=== PATIENT | female | born 1975 | race Asian ===

== ENCOUNTER 2019-01-21 12:30 | Outpatient (RCR) | payer OTHER, SELFPAY ==
--- NOTE | 2019-01-11 14:17 | OT.OP.EVAL ---
Visit Care Team Role Provider Type Celsa Ward MD Primary Care Provider Physician Specialty: Family Practice Address: [address] [place] [address], [address] Email: [email or web address] Asher Tirado MD Attending Provider Non-Staff Specialty: Family Practice Address: [address] [place] [address], [id number] Email: Occupational Therapy Initial Evaluation OT Outpatient Adult Evaluation Start: 01/11/19 13:46 Freq: Status: Active Protocol: Document 01/10/19 15:30 AMS (Rec: 01/11/19 14:17 AMS [email or web address]) General Information Visit Start Time 14:30 Visit Stop Time 15:18 Total Visit Minutes 48 Plan of Care Dates 01/10/19-02/21/19 Insurance Information - Pre-auth Required Treatment Setting Outpatient Care Note Type Initial Evaluation Referring Physician Asher Tirado MD Reason for Referral Pain in left hand Precautions None listed Identification Confirmed Yes Identification Confirmed By Self Patient Concerns Pain Medical History Giulia reported that x-ray and CT scan were negative. Previous Therapy/Therapies No: Denied Therapy Pain Assessment When Pain Assessed pre-tx Pain Present Pain Reported Left Hand Intensity 6 Scale Used Numeric (1 - 10) Pain Behaviors Guarding Wincing Pain Management Techniques Apply Cold Distraction IADLs Comments Impaired Sleep Description Verbally reported difficulties sleeping. 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 Goals Treatment Ultrasound. 20% duty cycle; pulsed setting. 1.8 w/cm2 to palmar surface to address swelling. Skin intact pre- and post-treatment. 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 Giulia will be modified independent with execution of home exercise program utilizing provided written and visual instructions. 2. Giulia will present with increased ability to complete every day tasks due to reduction in pain/discomfort of the left hand; this will be evidenced by Giulia's indication of 2 or less on the Pain Assessment Grid relative to the left hand. 3. Giulia will be able to complete vocational tasks with minor complaints of pain/ discomfort. Assessment/Plan Patient Response Fair Rehabilitation Potential Fair Impairments Identified ADLs Coordination/Dexterity Flexibility Functional Activities Motor Function Pain Weakness Range of Motion Recreational Activities Meaningful Activities Stiffness Swelling Soft Tissue Mobility Motor Planning Treatment Assessment Giulia is a right hand dominant 43 year-old female referred to outpatient OT by attending physician d/t left hand pain. Giulia reported that the pain in her left hand presented after her return from a 10-day vacation in [place]; Giulia was unable to identify event/ incident that occurred prior to the presentation of her symptoms. Giulia reports icing hand consistently; she also reports attempting to use ruth ann bandage to manage pain symptoms. PMH: Outpatient Health History Form completed by patient and placed in paper chart. Significant for bruising easily; jaw pain; headaches; shortness of breath ; difficulties sleeping; and surgery for removal of cysts in breast. Patient Goals: Minimize pain; be able to complete daily tasks, including vocational tasks without pain; increase strength of hand. Evaluation findings: Right hand dominant female; mild edema - dorsum of left hand and volar surface of left hand /palmar area; pain/discomfort of the left hand; decreased ability to execute daily and vocational tasks w/ active incorporation of the non- dominant hand; decreased strength of the left hand; discomfort w/ formation of tight fist w/ left hand; discomfort w/ active ext of MCP and IP joints of 3rd digit and w/ slightly resisted abd. Outpatient OT is recommended to address these areas in order to maximize Giulia's success in day-to-day life with active participation in meaningful activities in a variety of environments (e.g., work). Home Exercise Program Instructed in manual massage; education completed re: available gloves to assist w/ edema management of the hand ( isotoner glove or edema glove) . Comment 6 weeks Comment 1-2 x per week Therapeutic Contents Active Range of Motion Client Education Functional Activities Home Exercise Program Joint Protection Manual Therapy Education Neurodevelopment Treatment Neuromuscular Re-Education Stretching/Flexibility Activities Therapeutic Activities Therapeutic Exercises Modalities Sensory Re-education Modalities As Needed As Prescribed Types of Modalities Contrast Bath E-Stim Functional Stimulation (FES) Graded Compression Ice Massage T.E.N. Stimulation TENS Placement/Application Ultrasound Other Patient Instruction Plan of Care Questions/Concerns
--- NOTE | 2019-01-14 17:32 | OT.OP.TRT ---
Visit Care Team Role Provider Type Celsa Ward MD Primary Care Provider Physician Specialty: Family Practice Address: [address] [place] [address], [address] Email: [email or web address] Asher Tirado MD Attending Provider Non-Staff Specialty: Family Practice Address: [address] [place] [address], [address] Email: Occupational Therapy Treatment Note OT Outpatient Treatment Note - Adult Start: 01/11/19 13:46 Freq: Status: Active Protocol: Document 01/14/19 17:10 AMS (Rec: 01/14/19 17:32 AMS [email or web address]) OT Outpatient Adult Treatment Note Session Time Visit Start Time 13:30 Visit Stop Time 14:10 Total Visit Minutes 40 Visit Information Plan of Care Dates 01/10/19-02/21/19 Insurance Information - Pre-auth Required Setting Treatment Setting Outpatient Care Visit Type Note Type Treatment Note General Information General Information Giulia is a right hand dominant 43 year-old female referred to outpatient OT by attending physician d/t left hand pain. Giulia reported that the pain in her left hand presented after her return from a 10-day vacation in [place]; Giulia was unable to identify event/ incident that occurred prior to the presentation of her symptoms. Giulia reports icing hand consistently; she also reports attempting to use ruth ann bandage to manage pain symptoms. PMH: Outpatient Health History Form completed by patient and placed in paper chart. Significant for bruising easily; jaw pain; headaches; shortness of breath ; difficulties sleeping; and surgery for removal of cysts in breast. - Subjective Identification Type Name Identification Reconciled With Medical Record Observations Giulia reported that her left hand is getting worse since the last session. I took Motrin today per Giulia. Chief Complaint(s) Restricts Effect on Activity Marked Degree Effect on Daily Life Marked Degree Additional Areas of Concern Pain Patient/Caregiver Compliance with Home Good Exercise Program - Objective Objective Measurements (+) tenderness w/ palpation of medial border of 2nd digit of L hand PIPJ -> MCPJ. c/o discomfort w/ PROM of 3rd digit w/ abd. Skilled Nursing Goals 1. Giulia will be modified independent with execution of home exercise program utilizing provided written and visual instructions. 2. Giulia will present with increased ability to complete every day tasks due to reduction in pain/discomfort of the left hand; this will be evidenced by Giulia's indication of 2 or less on the Pain Assessment Grid relative to the left hand. 3. Giulia will be able to complete vocational tasks with minor complaints of pain/ discomfort. - Treatment 2 Descriptor Ultrasound to left hand to address swelling; 2.0 w/cm2, 20% duty cycle to dorsum of left hand/left second digit. x 10 minutes. Skin intact pre- and post-treatment. Complexity No Change 1 Descriptor HEP. Upgraded HEP. Instructed in passive range of motion exercise of L 3rd digit away from midline w/ abduction; instructed in hold and repetitions. Giulia denied need for written and/or visual instructions. Instructed in contrast baths for hand; written instructions were provided, as well as verbal instructions were provided for modified version. Giulia denied questions. Instructed in manual massage of the 2nd digit as well. Giulia denied need for written and/or visual instructions re: this technique. Complexity Upgraded Exercises 1 Descriptor Manual therapy. Focus on medial border of 2nd digit PIPJ -> MCPJ. Decreased tenderness noted between 2nd and 3rd metacarpals w/ manual massage proximally; tenderness still reported distally between just proximal and distal to 2nd and 3rd MCP joints. Complexity Upgraded - Assessment Patient Response to Treatment Fair Rehab Potential Fair Impairments Identified Coordination/Dexterity Flexibility Functional Activities Motor Function Pain Weakness Range of Motion Recreational Activities Meaningful Activities Stiffness Swelling Soft Tissue Mobility Motor Planning Assessment of Improvement (+) compliance reported w/ HEP ; however, denied change in pain presentation. Decreased swelling noted compared to previous treatment session. (+ ) tenderness palpated medial border of 2nd digit PIP --> MCP joint proximally. Decreased tenderness reported w/ palpation between 2nd and 3rd metacarpals; however, continued report of discomfort just proximal <-> distal 2nd and 3rd MCP joints. Upgraded HEP on this treatment date; patient denied questions re: HEP. (+) desire for allievation of pain/discomfort in left hand at this time d/t impact on vocation/day-to-day life. Will need to determine if reduction of pain/ discomfort occurs by next treatment session; determine plan of care based on presentation. Home Exercise Program Upgraded; please refer to treatment section of note for specific details. Reviewed with Patient/Caregiver Goals Progress Being Made Home Exercise Program Patient/Caregiver Understanding Fair - Plan Therapy Recommendations Continue with Current Program Advance per Rehabilitation Protocol
--- NOTE | 2019-01-21 14:21 | OT.OP.DC ---
Visit Care Team Role Provider Type Celsa Ward MD Primary Care Provider Physician Address: [address] [place] [address], [address] Email: [email or web address] Asher Tirado MD Attending Provider Non-Staff Address: [address] [place] [address], [address] Email: OT Outpatient OT Outpatient Adult Evaluation Start: 01/11/19 13:46 Freq: Status: Active Protocol: Document 01/10/19 15:30 AMS (Rec: 01/11/19 14:17 AMS [email or web address]) General Information Session Time Visit Start Time 14:30 Visit Stop Time 15:18 Total Visit Minutes 48 Visit Information Plan of Care Dates 01/10/19-02/21/19 Insurance Information - Pre-auth Required Setting Treatment Setting Outpatient Care Visit Type Note Type Initial Evaluation Referral Referring Physician Asher Tirado MD Reason for Referral Pain in left hand Precautions None listed Identification Identification Confirmed Yes Identification Confirmed By Self Patient Patient Concerns Pain Medical Information Medical History Giulia reported that x-ray and CT scan were negative. Previous Therapy Previous Therapy/Therapies No: Denied Therapy Pain Assessment Pain When Pain Assessed pre-tx Pain Present Pain Present Pain Reported Location Left Hand Intensity 6 Scale Used Numeric (1 - 10) Pain Behaviors Guarding Wincing Pain Management Techniques Apply Cold Distraction IADLs Overall Function Comments Impaired Sleep Sleep Description Verbally reported difficulties sleeping. 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 Goals Treatment Treatment Ultrasound. 20% duty cycle; pulsed setting. 1.8 w/cm2 to palmar surface to address swelling. Skin intact pre- and post-treatment. Jail Goals Jail Goals 1. Giulia will be modified independent with execution of home exercise program utilizing provided written and visual instructions. 2. Giulia will present with increased ability to complete every day tasks due to reduction in pain/discomfort of the left hand; this will be evidenced by Giulia's indication of 2 or less on the Pain Assessment Grid relative to the left hand. 3. Giulia will be able to complete vocational tasks with minor complaints of pain/ discomfort. Assessment/Plan Assessment Patient Response Fair Rehabilitation Potential Fair Impairments Identified ADLs Coordination/Dexterity Flexibility Functional Activities Motor Function Pain Weakness Range of Motion Recreational Activities Meaningful Activities Stiffness Swelling Soft Tissue Mobility Motor Planning Treatment Assessment Giulia is a right hand dominant 43 year-old female referred to outpatient OT by attending physician d/t left hand pain. Giulia reported that the pain in her left hand presented after her return from a 10-day vacation in [place]; Giulia was unable to identify event/ incident that occurred prior to the presentation of her symptoms. Giulia reports icing hand consistently; she also reports attempting to use ruth ann bandage to manage pain symptoms. PMH: Outpatient Health History Form completed by patient and placed in paper chart. Significant for bruising easily; jaw pain; headaches; shortness of breath ; difficulties sleeping; and surgery for removal of cysts in breast. Patient Goals: Minimize pain; be able to complete daily tasks, including vocational tasks without pain; increase strength of hand. Evaluation findings: Right hand dominant female; mild edema - dorsum of left hand and volar surface of left hand /palmar area; pain/discomfort of the left hand; decreased ability to execute daily and vocational tasks w/ active incorporation of the non- dominant hand; decreased strength of the left hand; discomfort w/ formation of tight fist w/ left hand; discomfort w/ active ext of MCP and IP joints of 3rd digit and w/ slightly resisted abd. Outpatient OT is recommended to address these areas in order to maximize Giulia's success in day-to-day life with active participation in meaningful activities in a variety of environments (e.g., work). Home Exercise Program Instructed in manual massage; education completed re: available gloves to assist w/ edema management of the hand ( isotoner glove or edema glove) . Plan Comment 6 weeks Comment 1-2 x per week Therapeutic Contents Active Range of Motion Client Education Functional Activities Home Exercise Program Joint Protection Manual Therapy Education Neurodevelopment Treatment Neuromuscular Re-Education Stretching/Flexibility Activities Therapeutic Activities Therapeutic Exercises Modalities Sensory Re-education Modalities As Needed As Prescribed Types of Modalities Contrast Bath E-Stim Functional Stimulation (FES) Graded Compression Ice Massage T.E.N. Stimulation TENS Placement/Application Ultrasound Other Patient Instruction Plan of Care Questions/Concerns Sensory Assessment Sensory Profile2 Functional Wrist/Hand Scan Hand Side OT Outpatient Treatment Note - Adult Start: 01/11/19 13:46 Freq: Status: Active Protocol: Document 01/21/19 14:20 AMS (Rec: 01/21/19 14:21 AMS [email or web address]) OT Outpatient Adult Treatment Note Visit Information Plan of Care Dates 01/10/19-02/21/19 Insurance Information - Pre-auth Required Setting Treatment Setting Outpatient Care Visit Type Note Type Discharge Summary General Information General Information Giulia is a right hand dominant 43 year-old female referred to outpatient OT by attending physician d/t left hand pain. Giulia reported that the pain in her left hand presented after her return from a 10-day vacation in [place]; Giulia was unable to identify event/ incident that occurred prior to the presentation of her symptoms. Giulia reports icing hand consistently; she also reports attempting to use ruth ann bandage to manage pain symptoms. PMH: Outpatient Health History Form completed by patient and placed in paper chart. Significant for bruising easily; jaw pain; headaches; shortness of breath ; difficulties sleeping; and surgery for removal of cysts in breast. - Subjective Identification Type Name Identification Reconciled With Medical Record Observations Giulia completed Pain Assessment Grid prior to treatment on this date; she indicated 3 out of 10 on the pain relative to dorsal hand between 2nd and 3rd MCP joints of the left hand. 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 I am worried about this one spot. It is still swollen. I just feel like I need to figure it out per Giulia. Treatment session was shortened secondary to patient arriving late to appointment d/t traffic. Chief Complaint(s) Restricts Effect on Activity Marked Degree Effect on Daily Life Marked Degree Additional Areas of Concern Pain Patient/Caregiver Compliance with Home Good Exercise Program - Objective Objective Measurements (+) tenderness w/ palpation of medial border of 2nd digit of L hand PIPJ -> MCPJ. c/o discomfort w/ PROM of 3rd digit w/ abd. Jail Goals GOALS MET Mod independent w/ execution of current HEP (contrast baths , manual massage, finger PROM, glides). *MET 01/21/19 GOALS DISCHARGED Giulia will present with increased ability to complete every day tasks due to reduction in pain/discomfort of the left hand; this will be evidenced by Giulia's indication of 2 or less on the Pain Assessment Grid relative to the left hand. 01/21/19= 3 out of 10; 90% met Giulia will be able to complete vocational tasks with minor complaints of pain/discomfort. 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 - Treatment 2 Descriptor Ultrasound to left hand to address swelling; 2.0 w/cm2, 20% duty cycle to dorsum of left hand/left second digit. x 10 minutes. Skin intact pre- and post-treatment. Complexity No Change 1 Descriptor HEP. Reviewed current HEP. No changes to HEP. D/C to HEP. Exercises 1 Descriptor Manual therapy. - Assessment Patient Response to Treatment Fair Rehab Potential Fair Impairments Identified Coordination/Dexterity Flexibility Functional Activities Motor Function Pain Weakness Range of Motion Recreational Activities Meaningful Activities Stiffness Swelling Soft Tissue Mobility Motor Planning Assessment of Improvement Giulia has made progress since time of initial evaluation w/ OT; she is presenting w/ decreased swelling of left hand, decreased pain/ discomfort from 6 out of 10 to 3 out of 10 on the Pain Scale , and decreased discomfort w/ manual massage relative to medial border of 2nd digit PIPJ --> MCPJ and between 2nd and 3rd metacarpals of the left hand. 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 Giulia also has verbalized concerns re: continued presentation of localized swelling of dorsal hand near 3rd MCPJ. Discussed options w/ Giulia, including seeing UE specialist for further evaluation/assessment of presenting symptoms. Giulia would like to follow-up w/ UE orthopedic MD/specialist. Home Exercise Program No changes to HEP. Reviewed with Patient/Caregiver Goals Progress Being Made Home Exercise Program Patient/Caregiver Understanding Fair - Plan Therapy Recommendations Discharge to Home Exercise Program Discharge from Occupational Therapy
== END 2019-01-22 16:12 | disposition home or self-care (01) ==
LOC: OT 12:30
PROVIDERS: PCP Family Medicine; Visit Provider General Practice
DX: M79.642 Pain in left hand (principal)
CPT/HCPCS: 97035; 97110; 97140; 97165

== ENCOUNTER → 2020-09-18 15:09 | Outpatient (CLI) | payer OTHER, SELFPAY ==
--- NOTE | 2020-09-18 15:12 | DI.RAD.S_ITS ---
PROCEDURE: XR CHEST 2V INDICATIONS: sob TECHNIQUE: 2 views of the chest were acquired. COMPARISON: None. FINDINGS: Surgical changes and devices: None. Lungs and pleura: Lungs are clear. No pleural effusions or pneumothorax. Mediastinum: Mediastinal contours are normal. Heart size is normal. Bones and chest wall: No suspicious bony abnormalities. Soft tissues appear unremarkable. IMPRESSION: No acute pulmonary process. Dictated by: Elissa Lee M.D. on 09/18/2020 at 16:28 Approved by: Elissa Lee M.D. on 09/18/2020 at 16:28
== END ==
PROVIDERS: PCP Registered Nurse; Referring Provider Registered Nurse; Visit Provider Registered Nurse
DX: R06.02 Shortness of breath (principal)
CPT/HCPCS: 71046

== ENCOUNTER → 2020-09-23 10:51 | Outpatient (CLI) | payer OTHER, SELFPAY ==
[2020-09-23 11:53] LABS: Add Manual Diff / Slide Review NO; Basophils Absolute Auto 100 /uL (0-100); Basophils Percent Auto 0.9 % (0-2); Eosinophils Absolute Auto 200 /uL (0-450); Eosinophils Percent Auto 4.4 % (2-4); Hematocrit 42.3 % (36-46); Hemoglobin 14.2 g/dL (12.0-16.0); Lymphocytes Absolute Auto 1400 /uL (1100-4500); Lymphocytes Percent Auto 25.2 % (25-40); Mean Corpuscular HGB Conc 33.5 % (30-36); Mean Corpuscular Volume 89.7 fL (80-100); Monocytes Absolute Auto 400 /uL (0-900); Monocytes Percent Auto 6.9 % (3-14); Neutrophils Absolute Auto 3600 /uL (1500-7000); Neutrophils Percent Auto 62.6 % (50-75); Platelet Count 199 X10^3/uL (150-400); Red Blood Cell Count 4.72 X10^6/uL (4.0-5.2); Red Cell Distribution Width 13.1 % (11.6-14.8); White Blood Cell Count 5.7 X10^3/uL (4.5-11.0)
[2020-09-23 12:07] LABS: Alanine Aminotransferase 21 IU/L (<35); Albumin 4.3 g/dL (3.5-5.0); Albumin Globulin Ratio 1.4 (1.0-2.8); Alkaline Phosphatase 52 U/L (38-126); Aspartate Aminotransferase 22 IU/L (14-36); BUN Creatinine Ratio 18.3 (6-22); Bilirubin Total 0.7 mg/dL (0.2-1.3); Blood Urea Nitrogen 13 mg/dL (7-17); Carbon Dioxide 28 mmol/L (22-32); Chloride 105 mmol/L (98-107); Cholesterol 183 mg/dL (140-199); Estimated Glomerular Filt Rate > 60.0 mL/min (>60); Globulin 3.1 g/dL (1.7-4.1); Glucose 94 mg/dL (70-100); HDL Cholesterol 58 mg/dL (40-60); HEMOLYSIS < 15 (0-50); LDL Cholesterol Calculated 104 mg/dL (<100); Sodium 137 mmol/L (137-145); Total Protein 7.4 g/dL (6.3-8.2); Triglycerides 104 mg/dL (35-150)
[2020-09-23 12:14] LABS: NT-proBNP (BNP-Adult 18+) 18 pg/mL (<125)
[2020-09-23 12:21] LABS: Free T4, Direct Thyroxine 1.22 ng/dL (0.78-2.19)
[2020-09-23 12:35] LABS: Thyroid Stimulating Hormone 1.05 uIU/mL (0.47-4.68)
== END ==
PROVIDERS: PCP Registered Nurse; Referring Provider Registered Nurse; Visit Provider Registered Nurse
DX: D64.9 Anemia, unspecified (principal); Z82.49 Family history of ischemic heart disease and other diseases of the circulatory system; R06.02 Shortness of breath; I10 Essential (primary) hypertension
CPT/HCPCS: 36415; 80053; 80061; 83880; 84439; 84443; 85025

== ENCOUNTER → 2020-10-14 09:36 | Outpatient (CLI) | payer OTHER, SELFPAY ==
[2020-10-14 11:08] LABS: COVID19 -Nasal RAPID Negative (Negative)
== END ==
PROVIDERS: PCP Registered Nurse; Visit Provider Physician Assistant
DX: Z01.812 Encounter for preprocedural laboratory examination (principal); Z20.822 Contact with and (suspected) exposure to COVID-19
CPT/HCPCS: 87635

== ENCOUNTER → 2020-10-15 08:24 | Outpatient (CLI) | payer OTHER, SELFPAY ==
--- NOTE | 2020-10-15 09:14 | PM.TREADMILL ---
Cardiac Stress Test Report Referral & Results Date Patient Seen: 10/15/20 Time Patient Seen: 08:45 Requesting provider: Edis Donato Indication: High blood pressure and shortness of breath Rest ECG: Normal sinus rhythm Procedure Note: Today following both written and verbal informed consent, the patient was exercised according to a standard Martin protocol. The patient exercised for a total of 9 minutes 15 seconds achieving a maximum heart rate of 181. Patient's maximum systolic blood pressure was to 220. This was an estimated 10.1 METs. Exaggerated hemodynamic response to exercise. No EKG changes. No signs or symptoms of angina. Normal exercise capacity (AMANDA -5% on active scale). Impression: Low probability for ischemia. De Los Santos treadmill score of 9 is correlated with 97% 5 year survival rate from cardiac causes of mortality. Please note: Actual ECG tracings can be found in the PACS system.
== END ==
PROVIDERS: PCP Registered Nurse; Referring Provider Registered Nurse; Visit Provider Registered Nurse
DX: R06.02 Shortness of breath (principal); I10 Essential (primary) hypertension
CPT/HCPCS: 93016; 93017; 93018

== ENCOUNTER → 2020-11-02 14:04 | Outpatient (CLI) | payer OTHER, SELFPAY ==
--- NOTE | 2020-11-02 | DI.MG.S_ITS ---
BILATERAL DIGITAL DIAGNOSTIC MAMMOGRAM 3D/2D WITH AUGMENTATION: 11/02/2020 CLINICAL: Left nipple abnormality. Comparison is made to exams dated: 10/16/2017 mammogram - [facility], 10/08/2014 mammogram, and 05/07/2013 mammogram - [facility]. The tissue of both breasts is extremely dense, which lowers the sensitivity of mammography. There is an oval high density asymmetry with an indistinct margin in the left breast at 12 o'clock in the retroareolar region. This is not significantly changed and correlates as palpated. Numerous additional hyperdense foci are redemonstrated bilaterally throughout both breasts. Findings are compatible with history of free silicone injections and are similar to the prior exams. The bilateral implants appear intact. No new significant masses, calcifications, or other findings are seen in either breast. IMPRESSION: INCOMPLETE: NEEDS ADDITIONAL IMAGING EVALUATION The oval high density asymmetry in the left breast in the area of palpable abnormality likely represents injected silicone and may correlate with palpable findings. An ultrasound is recommended. Diffuse bilateral high density redemonstrated throughout both breasts are consistent with injected free silicone. Ultrasound will be performed immediately following the current exam. This exam was interpreted at Station ID: [id number]. NOTE: For mammograms, a report in lay terms will be sent to the patient. Approximately 15% of breast malignancies will not be visualized mammographically. In the management of a palpable breast mass, a negative mammogram must not discourage biopsy of a clinically suspicious lesion. Electronically Signed By: Junito Arevalo M.D. ddp/:11/02/2020 16:10:04 ACR BI-RADS Category 0: Incomplete [id number]
--- NOTE | 2020-11-02 14:06 | DI.US.S_ITS ---
LIMITED ULTRASOUND OF LEFT BREAST: 11/02/2020 CLINICAL: Palpable left breast lump. Comparison is made to exams dated: 11/02/2020 mammogram, 10/16/2017 mammogram - [facility], 10/08/2014 mammogram, and 05/07/2013 mammogram - [facility]. Color flow and real-time ultrasound of the left breast 12 o'clock region were performed on the areas of interest. There is a 1.8 cm x 0.3 cm x 1.2 cm oval mass with a circumscribed margin within the skin of the left breast at 12 o'clock in the retroareolar region. This oval mass is of mixed echogenicity with internal echoes. This correlates as palpated. Color flow imaging demonstrates that there is no vascularity present. Echogenic shadowing foci within the visualized breast correspond to free silicone injections as seen on mammography. IMPRESSION: PROBABLY BENIGN The 1.8 cm x 0.3 cm x 1.2 cm oval mass or complicated fluid collection within the skin of the left breast is probably benign. Clinical correlation and management are recommended including a possible skin biopsy. A follow-up ultrasound in 6 months is recommended to demonstrate stability if clinically indicated. This exam was interpreted at Station ID: [id number]. Electronically Signed By: Junito Arevalo M.D. ddpreston/:11/02/2020 16:16:11 letter sent: Clinical Evaluation Ultrasound BI-RADS: 3 Probably benign
--- NOTE | 2020-11-02 14:06 | DI.US.S_ITS ---
PROCEDURE: US PELVIC COMPLETE INDICATIONS: abnormal vaginal bleedings TECHNIQUE: Real-time scanning was performed of the pelvic organs, with image documentation. Additional endovaginal scanning was necessary due to incomplete visualization of the adnexal and endometrial structures by transabdominal scanning. COMPARISON: None. FINDINGS: Uterus: Retroverted uterus is normal in size at 7.7 x 6.0 x 4.3 cm. The endometrium measures 8 mm in combined thickness. Left anterior intramural fibroid measuring 1.0 x 0.9 x 1.2 cm. Midline posterior subserosal fibroid measuring 2.9 x 2.8 x 2.0 cm. Ovaries: Right ovary measures 1.1 x 1.8 x 2.6 cm. The left ovary measures 4.7 x 1.9 x 2.0 cm. Ovaries are grossly unremarkable. Other: No pathologic free abdominal or pelvic fluid. IMPRESSION: Multiple uterine fibroids. Dictated by: Adolph Woodruff M.D. on 11/02/2020 at 15:51 Approved by: Adolph Woodruff M.D. on 11/02/2020 at 15:54
== END ==
PROVIDERS: PCP Registered Nurse; Referring Provider Registered Nurse; Visit Provider Registered Nurse
DX: R92.8 Other abnormal and inconclusive findings on diagnostic imaging of breast; N63.25 Unspecified lump in the left breast, overlapping quadrants; N93.8 Other specified abnormal uterine and vaginal bleeding; N92.0 Excessive and frequent menstruation with regular cycle; D25.2 Subserosal leiomyoma of uterus; D25.1 Intramural leiomyoma of uterus; Z98.82 Breast implant status
CPT/HCPCS: 76642; 76856; 77066; G0279

== ENCOUNTER → 2020-12-29 15:02 | Outpatient (CLI) | payer OTHER, SELFPAY ==
[2020-12-29 15:35] LABS: COVID19 -Nasal RAPID Negative (Negative)
== END ==
PROVIDERS: PCP Registered Nurse; Visit Provider Specialist
DX: Z20.822 Contact with and (suspected) exposure to COVID-19 (principal)
CPT/HCPCS: 87635; C9803

== ENCOUNTER 2020-12-30 08:35 | Day surgery (SDC) | payer OTHER, SELFPAY ==
[2020-12-25 15:04] VITALS: BMI 27.1
[2020-12-30] VITALS (9 sets, daily range): BP systolic 122–144; BP diastolic 77–100; PULSE 70–85; RESP 12–16; TEMP 36.3–36.8; O2SAT 99–100; BMI 25.7
--- NOTE | 2020-12-30 | PATH_ITS ---
[facility] Accession Number: [id number] . 01 Material submitted: . breast - LEFT BREAST KELOID/MASS . 01 Clinical history: . HISTORY OF SILICONE INJECTIONS . 01 Diagnosis: A. Skin, Left Breast Keloid/Mass, Excision: Skin with dermal keloid formation. Minimal underlying breast parenchyma within normal limits. Negative for atypia, carcinoma in situ, and malignancy. [facility] 01/05/2021 1805 Local . 01 Electronically signed: . Shanique Miguel MD, Pathologist NPI- [id number] . 01 Gross description: . The specimen is received in formalin, labeled left breast mass/keloid and consists of a 2.2 x 1.0 cm vasquez skin excised to a depth of 1.2 cm. The margin is inked blue. The specimen is serially sectioned and entirely submitted. . A1: tips. A2-A3: central cross-sections. (EA:[id number]) /MRV 12/31/2020 1145 Local . 01 Pathologist provided ICD-10: L91.0 . 01 CPT . 723996 Performed at: 01 [facility] [address] [place] [address] [id number] MD Junito Guido MD Phone: [phone]
[2020-12-30] MEDS: LACTATED RINGERS 1,000 ML 100 ML IV (09:13)
--- NOTE | 2020-12-30 09:59 | PM.PREOP ---
Pre-operative Note COVID-19 COVID-19 status: Negative Result date/Date tested (Pos, Neg/Pending): 12/29/20 Interval Note History & Physical reviewed/Exam performed by Physician: Yes Changes to H&P: No
[2020-12-30] MEDS: CEFAZOLIN 1 GM VIAL 2 GM IV (10:21)
[2020-12-30] MEDS: BUPIVACAINE 0.5% (PF) VIAL 30 ML INJ (10:41)
[2020-12-30] MEDS: TRIAMCINOLONE 40 MG/ML VIAL IM (10:42)
--- NOTE | 2020-12-30 11:03 | PM.OP.1 ---
Operative Date/Time/Diagnoses Date of procedure: 12/30/20 Time of procedure: 11:03 Pre-op diagnosis: Patient is a woman with a prominent keloid at the edge of her nipple-areolar complex. Is bothering her and she has a mass involved with it. She is here for removal. Post-op diagnosis: same Procedure & Clinicians Procedure: Excision of keloid and associated mass. This was principally dermal in nature. It was not in the breast. Same procedure as scheduled: Yes Indications: Keloid/mass left breast Surgeon: Braeden Stanley Click Yes if Unassisted: Yes Anesthesia Type: General Operative Notes Findings: Length of keloid 2.5 cm. Excised in its entirety down to normal subcu fat. Mass appeared to be within the dermis itself and probably was part of the keloid. Closure Type: primary Specimen(s): other (Keloid) Prosthetic devices, grafts, tissues, transplants, or devices: None Estimated Blood Loss (mL): 5 Blood products transfused: none Procedure in detail: Patient is placed supine on the operating table and underwent general LMA anesthesia. She was prepped and draped in the usual fashion. I incised around the edge of the keloid in the encompassing mass and carried the incision down the subcu fat. Using cautery I dissected it off of the subcu fat. There was no palpable mass remaining. Hemostasis was achieved with cautery. I was very careful not to go deep into the breast. The subcu was closed with interrupted 3-0 Vicryl and skin was closed a running 4-0 Vicryl subcuticular stitch and Steri-Strips. Prior to closure I injected local anesthetic followed by dermal injection of Kenalog (total of 40 mg injected). Complications: none Post-operative Condition: stable Disposition: PACU
[2020-12-30] MEDS: OXYCODONE/ACETAMINOPHEN 5/325 TABLET 1 TAB PO (11:30)
--- NOTE | 2020-12-30 11:51 | SUR.PHASEII ---
Report given to HARMEET Corbett, pt sleeping in bed resting comfortably and tolerating her pain which she states is at 8/10.
--- NOTE | 2020-12-30 12:21 | SUR.PHASEII ---
Pt up and ambulating gait steady, all dc instructions given and pt verbalizes understanding. iv dcd site clear. Tolerating po fluids and crackers without problems
== END 2020-12-30 12:24 | disposition home or self-care (01) ==
PROVIDERS: PCP Registered Nurse; Referring Provider Registered Nurse; Visit Provider Specialist
PROC: (CPT 11403; principal; 2020-12-30 09:45)
DX: L91.0 Hypertrophic scar (principal); N63.42 Unspecified lump in left breast, subareolar; I10 Essential (primary) hypertension; F41.9 Anxiety disorder, unspecified
CPT/HCPCS: 11403; 12031; J0690; J1100; J2250; J2405; J2704; J3010

== ENCOUNTER → 2021-07-06 10:45 | Outpatient (CLI) | payer OTHER, SELFPAY ==
[2021-07-06 12:08] LABS: Alanine Aminotransferase 18 IU/L (<35); Albumin 4.6 g/dL (3.5-5.0); Albumin Globulin Ratio 1.4 (1.0-2.8); Alkaline Phosphatase 53 U/L (38-126); Aspartate Aminotransferase 25 IU/L (14-36); BUN Creatinine Ratio 18.8 (6-22); Bilirubin Total 0.9 mg/dL (0.2-1.3); Blood Urea Nitrogen 15 mg/dL (7-17); Calcium 9.4 mg/dL (8.4-10.2); Carbon Dioxide 26 mmol/L (22-32); Chloride 104 mmol/L (98-107); Estimated Glomerular Filt Rate > 60.0 mL/min (>60); Globulin 3.3 g/dL (1.7-4.1); Glucose 86 mg/dL (70-100); HEMOLYSIS < 15 (0-50); Potassium 4.5 mmol/L (3.4-5.1); Sodium 139 mmol/L (137-145); Total Protein 7.9 g/dL (6.3-8.2)
== END ==
PROVIDERS: PCP Registered Nurse; Referring Provider Registered Nurse; Visit Provider Registered Nurse
DX: F41.9 Anxiety disorder, unspecified (principal); F32.9 Major depressive disorder, single episode, unspecified; I10 Essential (primary) hypertension
CPT/HCPCS: 36415; 80053

== ENCOUNTER → 2021-10-11 14:28 | Outpatient (CLI) | payer OTHER, SELFPAY ==
[2021-10-11 16:39] LABS: Urine N gonorrhoeae NOT DETECTED
[2021-10-11 17:07] LABS: Urine Chlamydia NOT DETECTED
[2021-10-12 22:04] LABS: Hepatitis B Surface Antigen NEGATIVE s/c (NEGATIVE)
[2021-10-12 22:25] LABS: HIV 1 & 2 Ab/Ag 4th Gen Combo NEGATIVE (NEGATIVE); Hep C Virus Ab w/Reflex Quant NEGATIVE s/c (NEGATIVE)
[2021-10-13 07:45] LABS: RPR Screen Non Reactive (Non Reactive)
[2021-10-13 12:41] LABS: HSV 2 IGG AB 4.31 index (0.00-0.90)
[2021-10-13 21:07] LABS: HSV I/II IgM 1.23 Ratio (0.00-0.90)
== END ==
PROVIDERS: PCP Registered Nurse; Referring Provider Registered Nurse; Visit Provider Registered Nurse
DX: R87.629 Unspecified abnormal cytological findings in specimens from vagina (principal); Z20.2 Contact with and (suspected) exposure to infections with a predominantly sexual mode of transmission
CPT/HCPCS: 36415; 86592; 86694; 86695; 86696; 86803; 87210; 87340; 87389; 87491; 87591

== ENCOUNTER → 2021-11-05 17:35 | Outpatient (CLI) | payer OTHER, SELFPAY ==
[2021-11-05 17:50] LABS: Add Manual Diff / Slide Review NO; Basophils Absolute Auto 0 /uL (0-100); Basophils Percent Auto 0.6 % (0-2); Eosinophils Absolute Auto 300 /uL (0-450); Eosinophils Percent Auto 4.2 % (2-4); Hematocrit 41.1 % (36-46); Hemoglobin 13.9 g/dL (12.0-16.0); Lymphocytes Absolute Auto 1400 /uL (1100-4500); Lymphocytes Percent Auto 19.1 % (25-40); Mean Corpuscular HGB Conc 33.9 % (30-36); Mean Corpuscular Hemoglobin 29.9 PG (26-34); Monocytes Absolute Auto 500 /uL (0-900); Monocytes Percent Auto 7.1 % (3-14); Neutrophils Absolute Auto 5100 /uL (1500-7000); Platelet Count 206 X10^3/uL (150-400); Red Blood Cell Count 4.67 X10^6/uL (4.0-5.2); Red Cell Distribution Width 14.1 % (11.6-14.8); White Blood Cell Count 7.4 X10^3/uL (4.5-11.0)
[2021-11-05 18:01] LABS: Appearance Urine UA SL CLOUDY; Bilirubin Urine UA NEGATIVE (NEGATIVE); Color Urine UA YELLOW; Glucose Urine UA NEGATIVE (Negative); Ketones Urine UA TRACE (NEGATIVE); Leukocyte Esterase Urine UA NEGATIVE (NEGATIVE); Nitrite Urine UA NEGATIVE (Negative); Occult Blood Urine UA 1+ (Negative); Protein Urine UA TRACE (Negative); Specific Gravity Urine UA 1.015 (1.000-1.035); Urobilinogen Urine UA 0.2 E.U./dL (0.2)
[2021-11-05 18:15] LABS: pH Urine UA 6.5 (4.5-8.0)
[2021-11-05 18:17] LABS: Alanine Aminotransferase 89 IU/L (<35); Albumin 4.8 g/dL (3.5-5.0); Albumin Globulin Ratio 1.3 (1.0-2.8); Alkaline Phosphatase 69 U/L (38-126); Amorphous Sediment Urine 1+; Aspartate Aminotransferase 57 IU/L (14-36); Bacteria Urine Few (2-10); Bilirubin Total 0.7 mg/dL (0.2-1.3); Bilirubin Unconjugated 0.6 mg/dL (0.0-1.1); C-Reactive Protein Quant 1.6 mg/dL (<1.0); Culture Indicated Urine Specimen Cultured; Globulin 3.6 g/dL (1.7-4.1); HEMOLYSIS < 15 (0-50); RBC Urine 1-5/HPF (0-5/HPF); Squamous Epithelial Cell Urine 1-5 /HPF (0-5/HPF); Total Protein 8.4 g/dL (6.3-8.2); WBC Urine 1-5/HPF (0-5/HPF)
[2021-11-05 18:22] LABS: Rheumatoid Factor < 8.6 IU/mL (<12.0)
[2021-11-05 18:26] LABS: Erythrocyte Sedimentation Rate 20 MM/HR (0-20)
[2021-11-05 18:52] LABS: Thyroid Stimulating Hormone 1.13 uIU/mL (0.47-4.68)
[2021-11-10 15:05] LABS: ANA Screen, IFA Negative (.)
== END ==
PROVIDERS: PCP Family Medicine; Referring Provider Family Medicine; Visit Provider Family Medicine
DX: M79.10 Myalgia, unspecified site (principal); R10.9 Unspecified abdominal pain; R21 Rash and other nonspecific skin eruption
CPT/HCPCS: 36415; 80076; 81001; 84443; 85025; 85651; 86038; 86140; 86430; 87086

== ENCOUNTER → 2021-11-08 11:49 | Outpatient (CLI) | payer OTHER, SELFPAY ==
--- NOTE | 2021-11-08 | DI.US.S_ITS ---
LIMITED ULTRASOUND OF LEFT BREAST: 11/08/2021 CLINICAL: 1 year f/u lump. Comparison is made to exams dated: 11/08/2021 mammogram, 11/02/2020 ultrasound, 11/02/2020 mammogram, and 10/16/2017 mammogram - [facility]. Color flow ultrasound of the left breast 12 o'clock region was performed. Baker scale images of the real-time examination were reviewed. No significant abnormalities were seen sonographically in the left breast. The previously seen skin lesion in the left breast at the 12 o'clock position has resolved. Breast parenchyma is obscured by shadowing related to diffuse free silicone in the breast. IMPRESSION: BENIGN There is no sonographic evidence of malignancy. A 1 year screening mammogram is recommended. This exam was interpreted at Station ID: [id number]. Electronically Signed By: Bandar burr/ned:11/08/2021 15:44:18 Ultrasound BI-RADS: 2 Benign
--- NOTE | 2021-11-08 | DI.MG.S_ITS ---
BILATERAL DIGITAL DIAGNOSTIC MAMMOGRAM 3D/2D WITH AUGMENTATION: 11/08/2021 CLINICAL: Short term follow up of the left breast, due for bilateral imaging. Comparison is made to exams dated: 11/02/2020 ultrasound, 11/02/2020 mammogram, and 10/16/2017 mammogram - [facility]. The tissue of both breasts is extremely dense, which lowers the sensitivity of mammography. There are diffuse silicone granulomas in both breasts. Bilateral subglandular silicone implants are present. There are multiple round oil cysts in the right breast upper outer aspect anterior depth. These are not significantly changed and correlate as palpated. The oval asymmetry in the left breast at 12 o'clock in the retroareolar region is no longer seen. No other significant masses or calcifications are seen in either breast. IMPRESSION: INCOMPLETE: NEEDS ADDITIONAL IMAGING EVALUATION The multiple round oil cysts in the right breast upper outer aspect anterior depth are indeterminate. An ultrasound is recommended. An ultrasound is recommended to confirm the no longer seen oval asymmetry in the left breast at 12 o'clock in the retroareolar region. This exam was interpreted at Station ID: [id number]. NOTE: For mammograms, a report in lay terms will be sent to the patient. Approximately 15% of breast malignancies will not be visualized mammographically. In the management of a palpable breast mass, a negative mammogram must not discourage biopsy of a clinically suspicious lesion. Electronically Signed By: Bandar burr/ned:11/08/2021 15:41:43 ACR BI-RADS Category 0: Incomplete [id number]
--- NOTE | 2021-11-08 11:50 | DI.US.S_ITS ---
LIMITED ULTRASOUND OF RIGHT BREAST: 11/08/2021 CLINICAL: Palpable right breast lump. Comparison is made to exams dated: 11/08/2021 mammogram, 11/02/2020 mammogram, and 10/16/2017 mammogram - [facility]. Color flow ultrasound of the right breast 11 o'clock region was performed. Baker scale images of the real-time examination were reviewed. There are multiple benign round oil cysts with smooth internal snow in the right breast superior lateral quadrant anterior depth. These round oil cysts display posterior acoustic enhancement. These correlate as palpated and with mammography findings. There are related rim calcifications. Breast parenchyma is obscured by diffuse free silicone within the breast. IMPRESSION: BENIGN There is no sonographic evidence of malignancy. The multiple round oil cysts in the right breast are benign. A 1 year screening mammogram is recommended. This exam was interpreted at Station ID: [id number]. Electronically Signed By: Bandar burr/ned:11/08/2021 15:46:27 letter sent: Normal Exam Ultrasound BI-RADS: 2 Benign
--- NOTE | 2021-11-08 13:14 | DI.US.S_ITS ---
At the request of: NICCI REHMAN Procedure: US breast RT limited LIMITED ULTRASOUND OF RIGHT BREAST: 11/08/2021 CLINICAL: Palpable right breast lump. Comparison is made to exams dated: 11/08/2021 mammogram, 11/02/2020 mammogram, and 10/16/2017 mammogram - [facility]. Color flow ultrasound of the right breast 11 o'clock region was performed. Baker scale images of the realtime examination were reviewed. There are multiple benign round oil cysts with smooth internal snow in the right breast superior lateral quadrant anterior depth. These round oil cysts display posterior acoustic enhancement. These correlate as palpated and with mammography findings. There are related rim calcifications. Breast parenchyma is obscured by diffuse free silicone within the breast. IMPRESSION: BENIGN There is no sonographic evidence of malignancy. The multiple round oil cysts in the right breast are benign. A 1 year screening mammogram is recommended. This exam was interpreted at Station ID: [id number]. Electronically Signed By: Bandar burr/ned:11/08/2021 15:46:27 letter sent: Normal Exam Ultrasound BI-RADS: 2 Benign
== END ==
PROVIDERS: PCP Family Medicine; Referring Provider Family Medicine; Visit Provider Family Medicine
DX: R92.8 Other abnormal and inconclusive findings on diagnostic imaging of breast (principal); N60.01 Solitary cyst of right breast; Z98.82 Breast implant status; Z87.898 Personal history of other specified conditions
CPT/HCPCS: 76642; 77066; G0279

== ENCOUNTER 2021-11-26 08:59 | Emergency (ER) | payer OTHER, SELFPAY ==
--- NOTE | 2021-11-26 09:30 | DI.RAD.S_ITS ---
PROCEDURE: XR CHEST 1V INDICATIONS: covid positive. cough TECHNIQUE: One view of the chest was acquired. COMPARISON: [facility], CR, XR CHEST 2V, 09/18/2020, 15:12. FINDINGS: Surgical changes and devices: None. Lungs and pleura: Low lung volumes are noted. This causes a crowded appearance to the lung markings and limits evaluation. Bilateral patchy interstitial type infiltrates are seen. No pneumothorax or large pleural effusion can be seen. Mediastinum: Mediastinal contours appear normal. Heart size is normal. Bones and chest wall: No suspicious bony lesions. Overlying soft tissues appear unremarkable. IMPRESSION: Patchy bilateral interstitial infiltrates are seen, which are consistent with the known clinical history of COVID pneumonia. Dictated by: Gavin Pleitez M.D. on 11/26/2021 at 8:52 Approved by: Gavin Pleitez M.D. on 11/26/2021 at 8:53
[2021-11-26 09:31] VITALS: BP 145/87; PULSE 78; RESP 18; TEMP 36.6; O2SAT 99; BMI 25.6
--- NOTE | 2021-11-26 09:35 | ED.SOB ---
HPI - SOB/Dyspnea General Chief Complaint: Upper Respiratory Symptoms Stated Complaint: *covid positive-coughing up blood Time Seen by Provider: 11/26/21 09:22 Source: patient Mode of arrival: Ambulatory Limitations: no limitations History of Present Illness HPI Narrative: This is a 38-year-old female who comes emergency department COVID positive on November 12 with persistent symptoms and a dry hacking cough. Patient states she has been occasionally coughing up blood. She states she had some post-tussive emesis the other day number some blood noted. She has continued to have shortness of breath when she coughs but is not short of breath without cough. She has not had any chest pain or burning sensation. She has been afebrile. She is not having any nausea or vomiting other than immediately with coughing. She has had some constipation. No urinary symptoms. No swelling in extremities. She states no other daily medications. She denies any medical issues. She states she is vaccinated for coronavirus. No tobacco, occasional alcohol, no illicit. Patient did have a prescription for oral antivirals sent into the pharmacy but it had not been received her there was some sort of issue with the prescription and she never received it. She has been back in touch with her primary care who wrote it but she is outside the window to receive it. Patient has been taking Mucinex. Related Data Previous Rx's Medication Instructions Recorded hydroxyzine HCl 10 mg tablet 10 mg PO BEDTIME PRN #30 tab 09/28/21 triamcinolone acetonide 0.025 % 1 applic TOPICAL BID #80 g 09/28/21 topical cream losartan 25 mg tablet See Rx Instructions .ROUTE 10/27/21 .COMPLEX #30 tab nirmatrelvir 150 mg x 2-ritonavir See Rx Instructions PO .COMPLEX 11/17/21 100 mg tablet (EUA) (Paxlovid #30 tab (EUA)) codeine 10 mg-guaifenesin 100 mg/5 5 ml PO Q6H PRN #118 ml 11/26/21 mL oral liquid Allergies Allergy/AdvReac Type Severity Reaction Status Date / Time trazodone Allergy Intermediate dizziness, Verified 10/15/21 13:57 nausea ethinyl estradiol Allergy Mild pollens, Verified 10/15/21 13:57 [From Seasonale (91)] pet dander, skin has a reaction, gets congested levonorgestrel Allergy Mild pollens, Verified 10/15/21 13:57 [From Seasonale (91)] pet dander, skin has a reaction, gets congested Review of Systems Review of Systems ROS Unobtainable: All systems reviewed & are unremarkable except as noted in HPI and below Patient History Medical History Abnormal mammogram of left breast (09/2020) Abnormal Pap smear of vagina Cervical cancer screening Encounter for routine gynecological examination (11/12/20) Irregular menstrual cycle Painful menstrual periods Possible exposure to STD Screening for HPV (human papillomavirus) Seasonal allergies Sleep apnea Vaginal discharge Surgical History Anesthesia History of breast implant (~2000) History of removal of cyst (~1998) History of surgery (~2000) Family History Father Stroke Mother Ovarian cancer Grandmother History of heart disease Stroke Social History household members: spouse Smoking Status: Never smoker alcohol intake: current Smoking Status: Never smoker alcohol intake frequency: a few times a month Substance Use Type: does not use Exam Narrative Exam Narrative: GEN: well nourished, well appearing female, alert and oriented x 3, patient appears to be in mild distress. HEENT: Atraumatic, pupils are equal round reactive to light, extraocular movements are intact, nares are clear. HEART: Regular rate and rhythm without murmur, clicks, rubs. LUNGS:Lungs clear to auscultation, no wheezes, rales, crackles, chest moves symmetrically, no tachypnea, accessory muscle use or other changes. Patient has a dry hacking cough. Was given a cup to tried expect Valentin into but has not been able to produce a sample. ABD:bowel sounds normal, soft, non-tender, no guarding, rebound, rigidity, no masses noted, no hepatosplenomegaly :No CVA tenderness MSCL: Non-tender, no muscle atrophy, muscles strength 5/5 upper and lower extremities, full range of motion, normal gait NEURO:CN 2-12 intact SKIN: No rash, erythema or other skin changes noted. Initial Vital Signs Initial Vital Signs: Vital Signs Temperature 97.8 F 11/26/21 09:31 Pulse Rate 78 11/26/21 09:31 Respiratory Rate 18 11/26/21 09:31 Blood Pressure 145/87 H 11/26/21 09:31 Pulse Oximetry 99 11/26/21 09:31 Course Orders Ordered: ED Orders 11/26/21 09:30 XR chest 1V Stat Vital Signs Vital signs: Vital Signs - 8 hr 11/26/21 09:31 Temperature 97.8 F Pulse Rate 78 Respiratory Rate 18 Blood Pressure 145/87 H Pulse Oximetry 99 MDM - SOB/Dyspnea Imaging Data Chest x-ray: Radiologist's Impression: Giulia Kincaid??46??F??1975 ? Allergy/Adv: trazodone, ethinyl estradiol, levonorgestrel (More??) Close Chest X-Ray (Signed) Gavin Pleitez - 11/26/21 Breast Ultrasound (Signed) Bandar Henry - 11/08/21 Mammogram Diagnostic (Signed) Bandar Henry - 11/08/21 Breast Ultrasound (Signed) Bandar Henry - 11/08/21 Pelvis Ultrasound (Signed) Adolph Woodruff - 11/02/20 Breast Ultrasound (Signed) Junito Arevalo - 11/02/20 Mammogram Diagnostic (Signed) Junito Arevalo - 11/02/20 Chest X-Ray (Signed) Elissa Lee - 09/18/20 Launch?[address] [address] XRay Report Signed Patient: Giulia Kincaid MR#: [id number] : 1975 Acct:[id number] Age/Sex: 46 / F Date of Service: 11/26/21 Loc: ED Accession Number: [id number] ?? Procedure: XR chest 1V Ordering Provider: Alana Bernal D.O. PROCEDURE:? XR CHEST 1V ? INDICATIONS:? covid positive. cough ? TECHNIQUE:? One view of the chest was acquired.? ? COMPARISON:? [facility], CR, XR CHEST 2V, 09/18/2020, 15:12. ? FINDINGS:? ? Surgical changes and devices:? None.? ? Lungs and pleura:? Low lung volumes are noted. This causes a crowded appearance to the lung markings and limits evaluation.? Bilateral patchy interstitial type infiltrates are seen.? No pneumothorax or large pleural effusion can be seen.? ? Mediastinum:? Mediastinal contours appear normal.? Heart size is normal.? ? Bones and chest wall:? No suspicious bony lesions.? Overlying soft tissues appear unremarkable.? IMPRESSION:? Patchy bilateral interstitial infiltrates are seen, which are consistent with the known clinical history of COVID pneumonia.? ? ? Dictated by: Gavin Pleitez M.D. on 11/26/2021 at 8:52 ? ? Approved by: Gavin Pleitez M.D. on 11/26/2021 at 8:53?? MDM Narrative Medical decision making narrative: Discussed with patient she has had some hemoptysis but a very dry hacking cough. Offered lab work and CT angio to rule out for pulmonary emboli she has some increased risk with her COVID positive diagnosis but no other known risk factors. At this time patient prefers to try antitussive see if this is helpful. Chest x-ray does show changes consistent with COVID pneumonia. She is out that side the window for oral antivirals. Patient and I discussed return precautions and that if she has persistent hemoptysis she does need screening for this. Vitals here are reassuring she is not tachycardic, hypoxic or febrile. We did discuss risk versus benefits and patient prefers not to do the workup today. Discharge Plan Departure Patient Disposition: Home Clinical Impression: Pneumonia due to 2019 novel coronavirus Instructions: DI for COVID-19 (Suspected or Confirmed ) Activity Restrictions/Additional Instructions: Follow-up with your physician if your symptoms continue to persist. Patients with COVID will often have a cough sometimes for several weeks. As discussed I would recommend lab work and CT angiography to evaluate for pulmonary emboli if your hemoptysis. Your x-ray does show changes consistent with coronavirus pneumonia. The cough syrup has Mucinex in it so you do not need to take this extra. You may use cough medication every 6 hours as needed. This medication can make you sleepy do not drive, perform hazardous activities or make any major decisions while taking it. This medication will make you constipated please take a stool softener once to twice daily until stools are soft and regular. Please return for fevers, new or worsening chest pain, shortness of breath, persistent hemoptysis or coughing blood or increasing amounts of blood, lightheadedness or passing out, new swelling or pain in her extremities or other new or concerning symptoms. Prescriptions: New codeine-guaifenesin 10-100 mg/5 mL liquid 5 ml PO Q6H PRN (Reason: cough) Qty: 118 0RF No Action losartan 25 mg tablet See Rx Instructions .ROUTE .COMPLEX Qty: 30 2RF Dose Instruction: TAKE 1 TABLET BY MOUTH DAILY FOR HYPERTENSION Rx Instructions: TAKE 1 TABLET BY MOUTH DAILY FOR HYPERTENSION Paxlovid (EUA) 150 mg x 2- 100 mg tablet See Rx Instructions PO .COMPLEX Qty: 30 0RF Rx Instructions: take TWO 150 mg tablets of nirmatrelvir with ONE 100 mg tablet of ritonavir twice daily for 5 days PO hydroxyzine HCl 10 mg tablet 10 mg PO BEDTIME PRN (Reason: insomnia, anxiety) Qty: 30 2RF triamcinolone acetonide 0.025 % cream 1 applic topical BID Qty: 80 1RF Referrals: Talia Blair MD [Primary Care Provider] - Stand Alone Forms: Work Release Note
[2021-11-26 10:53] VITALS: BP 160/90; PULSE 68; RESP 16; O2SAT 100
== END 2021-11-26 10:55 | disposition home or self-care (01) ==
PROVIDERS: Emergency Provider Emergency Medicine; PCP Family Medicine
DX: U07.1 COVID-19 (principal); J12.82 Pneumonia due to coronavirus disease 2019; R04.2 Hemoptysis
CPT/HCPCS: 71045; 99281; 99283

== ENCOUNTER → 2021-12-30 17:23 | Outpatient (CLI) | payer OTHER, SELFPAY ==
--- NOTE | 2021-12-30 17:25 | DI.RAD.S_ITS ---
PROCEDURE: XR CHEST 2V INDICATIONS: persistent cough, s/p pneumonia TECHNIQUE: 2 views of the chest were acquired. COMPARISON: [facility], CR, XR CHEST 1V, 11/26/2021, 9:38. FINDINGS: Surgical changes and devices: None. Lungs and pleura: Lungs are clear. No pleural effusions or pneumothorax. Mediastinum: Mediastinal contours are normal. Heart size is normal. Bones and chest wall: No suspicious bony abnormalities. Soft tissues appear unremarkable. IMPRESSION: No acute pulmonary process. Dictated by: Elissa Lee M.D. on 12/31/2021 at 15:09 Approved by: Elissa Lee M.D. on 12/31/2021 at 15:10
[2021-12-30 17:53] LABS: Add Manual Diff / Slide Review NO; Basophils Absolute Auto 100 /uL (0-100); Eosinophils Absolute Auto 300 /uL (0-450); Eosinophils Percent Auto 3.5 % (2-4); Hematocrit 41.5 % (36-46); Hemoglobin 14.2 g/dL (12.0-16.0); Lymphocytes Absolute Auto 1900 /uL (1100-4500); Lymphocytes Percent Auto 24.3 % (25-40); Mean Corpuscular HGB Conc 34.1 % (30-36); Mean Corpuscular Hemoglobin 29.9 PG (26-34); Mean Corpuscular Volume 87.5 fL (80-100); Monocytes Absolute Auto 500 /uL (0-900); Monocytes Percent Auto 6.6 % (3-14); Neutrophils Absolute Auto 5000 /uL (1500-7000); Neutrophils Percent Auto 64.6 % (50-75); Platelet Count 276 X10^3/uL (150-400); Red Blood Cell Count 4.74 X10^6/uL (4.0-5.2); Red Cell Distribution Width 14.3 % (11.6-14.8); White Blood Cell Count 7.7 X10^3/uL (4.5-11.0)
[2021-12-30 18:10] LABS: Alanine Aminotransferase 20 IU/L (<35); Albumin 4.7 g/dL (3.5-5.0); Albumin Globulin Ratio 1.4 (1.0-2.8); Alkaline Phosphatase 64 U/L (38-126); Aspartate Aminotransferase 26 IU/L (14-36); BUN Creatinine Ratio 18.3 (6-22); Bilirubin Total 0.5 mg/dL (0.2-1.3); Blood Urea Nitrogen 13 mg/dL (7-17); Calcium 9.7 mg/dL (8.4-10.2); Carbon Dioxide 28 mmol/L (22-32); Chloride 101 mmol/L (98-107); Estimated Glomerular Filt Rate > 60 mL/min (>60); Globulin 3.4 g/dL (1.7-4.1); Glucose 95 mg/dL (70-100); HEMOLYSIS < 15 (0-50); Potassium 3.8 mmol/L (3.4-5.1); Sodium 138 mmol/L (137-145); Total Protein 8.1 g/dL (6.3-8.2)
[2021-12-30 18:49] LABS: Creatinine Urine Random 55.6 mg/dL
[2021-12-30 18:52] LABS: Microalbumi Creatinin Ratio Ur 25.1 ug/mg CR (<30); Microalbumin Urine Random 1.4 mg/dL (0-1.6)
== END ==
PROVIDERS: PCP Family Medicine; Referring Provider Family Medicine; Visit Provider Family Medicine
DX: G47.00 Insomnia, unspecified (principal); J18.9 Pneumonia, unspecified organism; R05.3 Chronic cough; I10 Essential (primary) hypertension
CPT/HCPCS: 36415; 71046; 80053; 82043; 82570; 85025

== ENCOUNTER → 2022-01-19 19:27 | Outpatient (CLI) | payer OTHER, SELFPAY ==
--- NOTE | 2022-01-19 19:29 | DI.MRI.S_ITS ---
PROCEDURE: MR HEAD/BRAIN WO CON INDICATIONS: persistent post-COVID headache TECHNIQUE: Noncontrast axial T1 spin echo, axial T2 fast spin echo, sagittal and axial FLAIR, coronal T2 fast spin echo, axial gradient echo, axial diffusion and ADC through the brain. COMPARISON: None. FINDINGS: Image quality: Excellent. CSF Spaces: Basal cisterns are patent. No extra-axial fluid collections. Ventricles are normal in size and shape. Brain: No intracranial masses or hemorrhage. Baker/white matter interface is normal. Brainstem appears normal. Diffusion-weighted images demonstrate no acute ischemic insult. No chronic ischemic insults. Normal intravascular flow voids are present. Skull and face: Calvarium has normal marrow signal. Orbits appear normal. Sinuses: Sinuses and mastoids are clear. IMPRESSION: Unremarkable brain MRI. No evidence of acute intracranial process. Dictated by: Milton Deras M.D. on 01/20/2022 at 8:18 Approved by: Milton Deras M.D. on 01/20/2022 at 8:19
== END ==
PROVIDERS: PCP Family Medicine; Referring Provider Pediatrics; Visit Provider Pediatrics
DX: R51.9 Headache, unspecified (principal); U09.9 Post COVID-19 condition, unspecified; G89.29 Other chronic pain
CPT/HCPCS: 70551

== ENCOUNTER → 2022-10-24 14:32 | Outpatient (CLI) | payer OTHER, SELFPAY ==
--- NOTE | 2022-10-24 14:35 | DI.RAD.S_ITS ---
PROCEDURE: XR CHEST 2V INDICATIONS: cough TECHNIQUE: 2 views of the chest were acquired. COMPARISON: [facility], CR, XR CHEST 2V, 12/30/2021, 17:13. FINDINGS: Surgical changes and devices: None. Lungs and pleura: Lungs are clear. No pleural effusions or pneumothorax. Mediastinum: Mediastinal contours are normal. Heart size is normal. Bones and chest wall: No suspicious bony abnormalities. Soft tissues appear unremarkable. IMPRESSION: No acute cardiopulmonary abnormality Dictated by: Adam Guerra M.D. on 10/24/2022 at 15:55 Approved by: Adam Guerra M.D. on 10/24/2022 at 15:55
== END ==
PROVIDERS: PCP Family Medicine; Referring Provider Family Medicine; Visit Provider Family Medicine
DX: R05.9 Cough, unspecified (principal)
CPT/HCPCS: 71046

== ENCOUNTER 2022-11-23 12:25 | Emergency (ER) | payer OTHER, SELFPAY ==
[2022-11-23 12:44] VITALS: BP 154/88; PULSE 78; RESP 16; TEMP 36.6; O2SAT 98; BMI 26.9
--- NOTE | 2022-11-23 18:45 | ED_ITS ---
HPI - Ear Problem <Karina Sampson PA-C - Last Filed: 11/23/22 18:51> General Chief complaint: Ear Stated complaint: cough/ear itching/lumps on left side of neck Time Seen by Provider: 11/23/22 18:07 Source: patient Mode of arrival: Ambulatory History of Present Illness HPI Narrative: 47-year-old female presents to the ED with 2 months of cough, left ear itching. Patient denies fever, chills, chest pain, shortness of breath, sore throat, nausea, vomiting, abdominal pain, dysuria, lightheadedness, dizziness, syncope. Patient also complains of a lump she was feeling on the left side of her neck. Related Data Previous Rx's Medication Instructions Recorded losartan 50 mg tablet 50 mg PO DAILY #90 tabs 10/24/22 zolpidem 10 mg tablet 10 mg PO BEDTIME PRN insomnia #28 10/24/22 tabs benzonatate 200 mg capsule 200 mg PO TID PRN cough #30 caps 10/27/22 benzonatate 200 mg capsule 200 mg PO TID PRN cough #30 caps 11/23/22 Allergies Allergy/AdvReac Type Severity Reaction Status Date / Time trazodone Allergy Intermediate dizziness, Verified 09/09/22 16:06 nausea ethinyl estradiol Allergy Mild pollens, Verified 09/09/22 16:06 [From Seasonale (91)] pet dander, skin has a reaction, gets congested levonorgestrel Allergy Mild pollens, Verified 09/09/22 16:06 [From Seasonale (91)] pet dander, skin has a reaction, gets congested Review of Systems <Karina Sampson PA-C - Last Filed: 11/23/22 18:51> Review of Systems ROS Unobtainable: All systems reviewed & are unremarkable except as noted in HPI and below Constitutional Constitutional: Denies chills, Denies fatigue, Denies fever(s), Denies frequent falls, Denies lethargy and Denies weakness Eyes Eyes: Denies change in vision, Denies eye discharge, Denies irritation and Denies loss of vision ENT Ears, Nose, Mouth, and Throat: Denies change in voice, Denies dizziness, Denies neck pain, Denies sore throat and Denies throat swelling Comments: Left neck swelling; left ear itchiness Cardiovascular Cardiovascular: Denies chest pain, Denies irregular heart rhythm, Denies lightheadedness, Denies palpitations, Denies dyspnea, Denies dyspnea on exertion and Denies orthopnea Respiratory Respiratory: Reports cough, Denies dyspnea, Denies dyspnea on exertion and Denies wheezing Gastrointestinal Gastrointestinal: Denies abdominal pain, Denies change in bowel habits, Denies diarrhea, Denies nausea and Denies vomiting Genitourinary Genitourinary: Denies hematuria, Denies flank pain, Denies urinary incontinence and Denies urinary urgency Musculoskeletal Musculoskeletal: Denies back pain, Denies muscle weakness, Denies neck pain, Denies numbness and Denies tingling Integumentary/Breasts Skin/Breast: Denies pruritus, Denies erythema, Denies rash and Denies wounds Neurologic Neurologic: Denies behavioral changes, Denies confusion, Denies dizziness, Denies frequent falls, Denies loss of vision, Denies numbness, Denies tingling and Denies weakness Psychiatric Psychiatric: Denies anxiety, Denies behavioral changes, Denies confusion, Denies depression, Denies homicidal ideation and Denies suicidal ideation Endocrine Endocrine: Denies fatigue, Denies flushing and Denies palpitations Hematologic/Lymphatic Hematologic/Lymphatic: Denies easy bruising Allergic/Immunologic Allergic/Immunologic: Denies urticaria, Denies throat swelling and Denies wheezing Patient History <Karina Sampson PA-C - Last Filed: 11/23/22 18:51> Medical History Abnormal mammogram of left breast (09/2020) COVID-19 Encounter for routine gynecological examination (11/12/20) Painful menstrual periods Seasonal allergies Sleep apnea Surgical History Anesthesia History of breast implant (~2000) History of removal of cyst (~1998) History of surgery (~2000) Family History Father Stroke Mother Ovarian cancer Grandmother History of heart disease Stroke Social History household members: spouse Smoking Status: Never smoker alcohol intake: current Smoking Status: Never smoker alcohol intake frequency: a few times a month Substance Use Type: does not use Exam <Karina Sampson PA-C - Last Filed: 11/23/22 18:51> Narrative Exam Narrative: Const General:?cooperative, healthy appearing and comfortable [facility] Head:?normal to inspection Ears:?hearing grossly normal bilaterally; bilateral tympanum normal; bilateral external ear canals normal Nose:?external nose normal Face and sinus:?normal facial exam and sinuses nontender Mouth:?oral mucosae normal Throat:?posterior oropharynx normal Eyes General:?appearance normal, both eyes and all related structures Neck Neck:?normal visual inspection; mild anterior cervical lymphadenopathy on the left side Resp Effort & Inspection:?normal respiratory effort Auscultation:?clear to auscultation bilaterally Cardio Rate:?regular rate Rhythm:?regular rhythm Neuro General:?patient alert, patient awake and patient oriented x3 Initial Vital Signs Initial Vital Signs: Vital Signs Temperature 97.9 F 11/23/22 12:44 Pulse Rate 78 11/23/22 12:44 Respiratory Rate 16 11/23/22 12:44 Blood Pressure 154/88 H 11/23/22 12:44 Pulse Oximetry 98 11/23/22 12:44 Oxygen Delivery Method Room Air 11/23/22 12:44 <Checo Meza MD - Last Filed: 12/11/22 22:07> Initial Vital Signs Initial Vital Signs: Vital Signs Temperature 97.9 F 11/23/22 12:44 Pulse Rate 78 11/23/22 12:44 Respiratory Rate 16 11/23/22 12:44 Blood Pressure 154/88 H 11/23/22 12:44 Pulse Oximetry 98 11/23/22 12:44 Oxygen Delivery Method Room Air 11/23/22 12:44 Course <Karina Sampson PA-C - Last Filed: 11/23/22 18:51> Vital Signs Vital signs: Vital Signs - 8 hr 11/23/22 12:44 Temperature 97.9 F Pulse Rate 78 Respiratory Rate 16 Blood Pressure 154/88 H Pulse Oximetry 98 Oxygen Delivery Method Room Air <Checo Meza MD - Last Filed: 12/11/22 22:07> Vital Signs Vital signs: Vital Signs - 8 hr 11/23/22 12:44 Temperature 97.9 F Pulse Rate 78 Respiratory Rate 16 Blood Pressure 154/88 H Pulse Oximetry 98 Oxygen Delivery Method Room Air Medical Decision Making <Karina Sampson PA-C - Last Filed: 11/23/22 18:51> [facility] Narrative Medical decision making narrative: 47-year-old female presents to the ED with 2 months of cough, left ear itching. Concern for otitis media versus otitis externa versus URI versus other. On physical exam, bilateral tympanum and external ear canals appear normal without infection. There is some anterior cervical lymphadenopathy, likely secondary to fighting a viral upper respiratory infection. Patient's symptoms could also be contributed by allergies. Will treat cough with Tessalon Perles. Recommend Zyrtec or Claritin and Flonase. Follow-up with PCP recommended. ED return precautions were discussed with patient. Patient verbalized understanding. Discharge Plan Departure Patient Disposition: Home Clinical Impression: URI (upper respiratory infection) Instructions: DI for Viral Upper Respiratory Infection -- Adult Activity Restrictions/Additional Instructions: You were evaluated in the ED today for left-sided ear pain. On exam, it is reassuring that your eardrums are both normal without infection. The lump that your feeling on the left side of your neck is possibly swollen lymph nodes due to your body trying to fight off a viral infection. If your symptoms are being caused by allergies, you may take Flonase, Zyrtec. You are being prescribed Tessalon Perles for your cough. Return to the ED if your symptoms worsen, you have chest pain, shortness of breath. Prescriptions: New benzonatate 200 mg capsule 200 mg PO TID PRN (Reason: cough) Qty: 30 0RF No Action benzonatate 200 mg capsule 200 mg PO TID PRN (Reason: cough) Qty: 30 0RF losartan 50 mg tablet 50 mg PO DAILY Qty: 90 1RF zolpidem 10 mg tablet 10 mg PO BEDTIME PRN (Reason: insomnia) Qty: 28 0RF Referrals: Lucie Lin DO [Primary Care Provider] - Stand Alone Forms: Patient Portal/API <Checo Meza MD - Last Filed: 12/11/22 22:07> Cosign ED Attending Cossushilaature Attestation: I was immediately available in the department for consultation. This documentation has been reviewed and I agree with assessment and plan. Supervised by Checo Meza MD
--- NOTE | 2022-11-23 18:52 | PC.NURSE ---
Reports swelling in left side of neck and itching in ears. No abnormal discharge, fevers. No changes in hearing
[2022-11-23 18:53] VITALS: BP 148/76; PULSE 66; RESP 12; O2SAT 98
== END 2022-11-23 18:54 | disposition home or self-care (01) ==
PROVIDERS: Emergency Provider Student in an Organized Health Care Education/Training Program; PCP Family Medicine
DX: J06.9 Acute upper respiratory infection, unspecified (principal)
CPT/HCPCS: 99281

== ENCOUNTER → 2023-12-04 09:45 | Outpatient (CLI) | payer OTHER, SELFPAY | PROVIDERS: PCP Family Medicine; Referring Provider Family Medicine; Visit Provider Family Medicine | DX: R00.2 Palpitations (principal) | CPT/HCPCS: 93246 ==

== ENCOUNTER → 2024-11-19 11:15 | Outpatient (CLI) | payer OTHER, SELFPAY ==
[2024-11-19 12:09] LABS: Mean Corpuscular HGB Conc 33.5 % (30-36); Mean Corpuscular Hemoglobin 28.7 PG (26-34); Mean Corpuscular Volume 85.8 fL (80-100); Platelet Count 228 X10^3/uL (150-400); Red Blood Cell Count 4.89 X10^6/uL (4.0-5.2); Red Cell Distribution Width 15.1 % (11.6-14.8); White Blood Cell Count 4.9 X10^3/uL (4.5-11.0)
[2024-11-19 12:45] LABS: Alanine Aminotransferase 14 IU/L (<35); Albumin 4.7 g/dL (3.5-5.0); Albumin Globulin Ratio 1.6 (1.0-2.8); Alkaline Phosphatase 46 U/L (38-126); Aspartate Aminotransferase 20 IU/L (14-36); BUN Creatinine Ratio 17.6 (6-22); Bilirubin Total 0.9 mg/dL (0.2-1.3); Blood Urea Nitrogen 16 mg/dL (7-17); Calcium 9.2 mg/dL (8.4-10.2); Carbon Dioxide 24 mmol/L (22-32); Chloride 106 mmol/L (98-107); Cholesterol 215 mg/dL (140-199); Estimated Glomerular Filt Rate > 60 mL/min (>60); Glucose 85 mg/dL (70-100); HDL Cholesterol 71 mg/dL (40-60); HEMOLYSIS < 15 (0-50); LDL Cholesterol Calculated 131 mg/dL (<100); Potassium 4.4 mmol/L (3.4-5.1); Sodium 139 mmol/L (137-145); Total Protein 7.7 g/dL (6.3-8.2); Triglycerides 66 mg/dL (35-150)
== END ==
PROVIDERS: PCP Family Medicine; Referring Provider Family Medicine; Visit Provider Family Medicine
DX: Z00.00 Encounter for general adult medical examination without abnormal findings (principal); I10 Essential (primary) hypertension; N92.0 Excessive and frequent menstruation with regular cycle
CPT/HCPCS: 36415; 80053; 80061; 85027

== ENCOUNTER → 2024-12-17 11:15 | Outpatient (CLI) | payer OTHER, SELFPAY ==
--- NOTE | 2024-12-17 11:17 | DI.US.S_ITS ---
PROCEDURE: US PELVIC COMPLETE INDICATIONS: FIBROIDS AND HEAVY PERIODS TECHNIQUE: Real-time scanning was performed of the pelvic organs, with image documentation. Additional endovaginal scanning was necessary due to incomplete visualization of the adnexal and endometrial structures by transabdominal scanning. COMPARISON: [facility], US, US PELVIC COMPLETE, 11/02/2020, 13:22. FINDINGS: Uterus: Uterus is anteverted and normal in size at 9.6 x 7.3 x 5.4 cm. The myometrium is homogeneous. The endometrium measures 14 mm combined thickness. There is a focal hyperechoic lesion in the mid endometrium measuring 1.1 x 2.2 cm. This has internal flow. Multiple uterine fibroids are again seen. Dominant lesion in the midportion measures 2.9 x 2.8 x 2.2 cm. A lesion in the midportion on the right measures 2 x 1.2 x 1.4 centimetres as well as another lesion in the fundus measuring 1.9 x 1.7 cm and in the midportion posteriorly measuring 1.9 x 1.5 cm. Ovaries: The right ovary measures 3.4 x 3.1 x 1.6 cm, with a calculated ovarian volume of 8.7 cc. The left ovary measures 4.4 x 1.9 x 1.5 cm, with a calculated ovarian volume of 6.4 cc. The ovaries have a normal sonographic appearance. Less than 12 follicles can be seen in each ovary. No adnexal masses are seen. Other: No pathologic free abdominal or pelvic fluid. IMPRESSION: 1. Prominent endometrium with a possible endometrial polyp measuring up to 2.2 cm. This can be further assessed with MRI. 2. Multiple fibroids measuring up to 2.9 cm, not significantly enlarged compared to prior study. 3. No adnexal mass or pelvic free fluid is seen. We strive to produce accurate, complete, and clear reports of imaging services. To assist us in improving patient care, this report was composed using standard report templates and voice recognition software. Therefore, it may contain abnormal punctuation, insertions and/or omissions. Occasional wrong-word or sound-alike substitutions may occur. Though we review the report and make efforts to correct it, we do recommend that the report be read carefully in proper context to recognize any text inaccuracies. Dictated by: Tolu Valerio M.D. on 12/17/2024 at 18:29 Approved by: Tolu Valerio M.D. on 12/17/2024 at 18:36
== END ==
PROVIDERS: PCP Family Medicine; Referring Provider Family Medicine; Visit Provider Family Medicine
DX: Z00.00 Encounter for general adult medical examination without abnormal findings (principal); D25.9 Leiomyoma of uterus, unspecified; I10 Essential (primary) hypertension; N92.0 Excessive and frequent menstruation with regular cycle
CPT/HCPCS: 76830; 76856

== ENCOUNTER → 2025-06-06 09:15 | Outpatient (CLI) | payer OTHER, SELFPAY ==
[2025-03-20 12:42] VITALS: BMI 19.3
[2025-06-09 09:09] LABS: Trichomoas vaginalis Negative (Negative)
== END ==
PROVIDERS: PCP Family Medicine; Visit Provider Obstetrics & Gynecology
DX: N89.8 Other specified noninflammatory disorders of vagina (principal)
CPT/HCPCS: 81514